=== PATIENT | male | born 1955 | race Caucasian/White ===

== ENCOUNTER → 2017-01-27 06:18 | Day surgery (SDC) | payer BC ==
--- NOTE | 2017-01-21 08:37 | HP ---
CC: Dr. Moreno * HISTORY AND PHYSICAL: DATE OF PLANNED ADMISSION AND SURGERY: 01/27/17 HISTORY OF PRESENT ILLNESS: Mr. 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 The patient has noted an increasing rash and discomfort in the glans penis and the foreskin. The condition has become bothersome and he was evaluated by Dr. Moreno. He was placed on an antifungal cream without improvement of the condition. There was no associated changes in his voiding; in particular, he did not have any decreased stream, hesitancy, or spraying of his urinary stream. Upon evaluation in the office, he was noted to have changes consistent with balanitis xerotica obliterans involving the foreskin and the glans penis, and circumcision was recommended. Past history is relevant for a right nephrectomy for obstructing stone disease in 1995. This has resulted in a right hydrocele for which he underwent surgery. He denies any voiding symptoms. He denies any history of gross hematuria. PAST MEDICAL HISTORY AND SYSTEM REVIEW: He is hypertensive, maintained on captopril 50 mg twice a day. He is on supplements and vitamins. He has a history of sleep apnea. He denies any cardiac or pulmonary diseases. ALLERGIES: He reports being ALLERGIC to SULFA drugs. PHYSICAL EXAMINATION GENERAL: He is a white male who looks older than his age. VITAL SIGNS: Blood pressure 150/74, pulse of 80. LUNGS: Normal. HEART: Normal. He has no CVA tenderness. ABDOMEN: Normal. GENITALIA: he is not circumcised. There is a blanching of the glans penis consistent with BXO. There is also thickening of the foreskin, consistent also with BXO. The urethral meatus looks normal, and there is no evidence of any meatal stenosis. RECTAL: Exam shows a non-enlarged and non-suspicious prostate. 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 PLAN: Plan is for circumcision. The patient understands that the circumcision will probably improve his condition, but does not completely cure it, and he might require to be on steroid cream treatments on and off on a chronic basis. I discussed the above plans with the patient; all his questions were answered. [id number]/[facility] #: [id number] [facility]
[~2017-01-27 06:18] MED LIST: Bacitracin OINTMENT* 1 TUBE ONE; Buffered Lidocaine 0.9% SYRIN* 5 ML/SYR SYRINGE INTRADERM ONE; Buffered Lidocaine 0.9% SYRIN* 5 ML/SYR SYRINGE ONE; Bupivacaine 0.5% SDV PF* 30 ML VIAL ONE; Dexamethasone IV* 4 MG/ML 1 ML (4 MG) ONE; DiMENhydriNATE IV* 50 MG/ML VIAL IV PUSH PRN; Famotidine IV* 10 MG/ML 2 ML (20 mg) IV ONE; Famotidine IV* 10 MG/ML 2 ML (20 mg) ONE; HYDROmorphone* 1 MG/ML 1 ML SYR IV PRN; KETAMINE HCL* 50 MG/ML 10 ML VIAL ONE; Ketorolac INJ* 30 MG/ML 1 ML VIAL ONE; Lidocaine 1% INJ* 10 MG/ML 30 ML SDV ONE; Lidocaine 2% JELLY* 6 ML JELLY TOPICAL ONE; Lidocaine 2% PF * 5 ML VIAL ONE; Midazolam* 1 MG/ML 5 ML VIAL (5 MG) ONE; Ondansetron INJ* 2 MG/ML VIAL ONE; Propofol* 10 MG/ML 20 ML BTL IV PUSH ONE; fentaNYL* 50 MCG/ML 2 ML VIAL (100 MCG VIAL) ONE; oxyCODONE/Acetamin 5/325 MG* TAB PO PRN
[2017-01-27 10:06] VITALS: BP 128/68
--- NOTE | 2017-01-28 05:38 | OP ---
CC: Tobias Moreno MD* DATE OF OPERATION: 01/27/17 - [facility] DATE OF : 59 SURGEON: Daniel Gutierres MD ANESTHESIOLOGIST: Luna Mac MD ANESTHESIA: General. PRE-OP DIAGNOSIS: Balanitis xerotica obliterans of foreskin and glans penis. POST-OP DIAGNOSIS: Balanitis xerotica obliterans of foreskin and glans penis. OPERATIVE PROCEDURE: Circumcision. INDICATION FOR PROCEDURE: Mr. Jones is a 61-year-old white male who had noted an increasing rash, pain, and thickening of the glans penis and of the foreskin. There was no associated change in his voiding. Physical exam in the office confirmed the diagnosis of balanitis xerotica obliterans with thickening and blanching of the foreskin and of the glans penis. There was no meatal stenosis. Because of the above history and findings, circumcision was advised and accepted. Pathology: The above described findings were again noted on exam. There was no phimosis noted. The foreskin was thick and moderately vascular. There were no suspicious skin lesions noted. DESCRIPTION OF PROCEDURE: With the patient in the supine position and under intravenous sedation, he was prepped and draped for circumcision. A total of 10 cc of a 50% mixture of 1% Xylocaine and 0.5% Marcaine were given for penile block. Because of agitation due to sleep apnea, the patient ended up being under general anesthesia for the procedure. A circumferential incision was carried at the skin aspect of the foreskin. The foreskin was then retracted and a circumferential incision was then carried on the mucous membrane aspect of the foreskin about 0.5 cm proximal and parallel to the king. The frenulum was fused with the skin and the frenular artery was identified and was preserved. The foreskin was then excised. The bleeders were electrocoagulated, or controlled with 4-0 Vicryl sutures. The stump of the foreskin was then approximated using interrupted sutures of 4-0 Vicryl. This achieved very good hemostasis and the final result looked very satisfactory. Antibiotic ointment was applied over the incision and a gentle dressing was applied. The patient tolerated the procedure well and left the operating room in good condition. The blood loss was negligible and the specimen was foreskin. All the counts were correct. [id number]/[facility] #: [id number] [facility]ITALMelissa
== END | disposition home or self-care (01) ==
LOC: OR 06:18
PROVIDERS: ATTEND Urology
DX: N48.0 Leukoplakia of penis (principal); I10 Essential (primary) hypertension; G47.30 Sleep apnea, unspecified
CPT/HCPCS: 88304; A9270-GY; J1100; J1885; J2001; J2250; J2405; J2704; J3010

== ENCOUNTER 2017-02-02 23:05 | Emergency (ER) | payer BC ==
[2017-02-03 01:04] VITALS: BP 111/45
--- NOTE | 2017-02-05 20:05 | ED ---
Skin Complaint - HPI Summary HPI Summary: Pt had a circumcision on 01/27. Tonight he was picking at surgical site. Expresses concern, no bleeding. Denies pain or abnormal discharge. Surgeon is Dr. Gutierres. No follow up as of yet. Sutures are absorbable. Denies pain with urination or difficulty urinating. - History of Current Complaint Chief Complaint: EDGeneral Time Seen by Provider: 02/03/17 00:42 Stated Complaint: PENIS LAC Hx Obtained From: Patient Onset/Duration: Started Hours Ago Skin Exposure Onset/Duration: Days Ago Timing: Constant Onset Severity: Mild Current Severity: Mild Pain Intensity: 0 Pain Scale Used: 0-10 Numeric Skin Location: Discrete - glans penis Related History: Trauma - Allergy/Home Medications Allergies/Adverse Reactions: Allergies Allergy/AdvReac Type Severity Reaction Status Date / Time Sulfa Antibiotics Allergy Rash Verified 01/27/17 06:21 PMH/Surg Hx/FS Hx/Imm Hx Previously Healthy: Yes Cardiovascular History: Reports: Hx Hypertension - controlled with medication Respiratory History: Reports: Hx Sleep Apnea - not confirmed History: Reports: Other Problems/Disorders - right kidney removed 1995 Sensory History: Reports: Hx Contacts or Glasses - reading Denies: Hx Hearing Aid Opthamlomology History: Reports: Hx Contacts or Glasses - reading - Surgical History Surgery Procedure, Year, and Place: right nephrectomy 1995. kidney stone 1976, 1995 Hx Anesthesia Reactions: No - Immunization History Hx Pertussis Vaccination: No Immunizations Up to Date: Unable to Obtain/Confirm Infectious Disease History: Denies: Traveled Outside the [place] in Last 30 Days - Social History Occupation: Unemployed Lives: With Family Alcohol Use: Rare Alcohol Amount: 1 drink every 2-3 months Substance Use Type: Reports: None, Excessive Caffeine Smoking Status (MU): Never Smoked Tobacco Review of Systems Constitutional: Negative ENT: Negative Cardiovascular: Negative Gastrointestinal: Negative Genitourinary: Negative Positive: no symptoms reported, see HPI Musculoskeletal: Negative Positive: Other - glans penis with absorbable sutures Neurological: Negative Psychological: Normal All Other Systems Reviewed And Are Negative: Yes Physical Exam Triage Information Reviewed: Yes Vital Signs On Initial Exam: Initial Vitals Temp Pulse Resp BP Pulse Ox 97.9 F 102 18 129/76 96 02/02/17 23:21 02/02/17 23:21 02/02/17 23:21 02/02/17 23:21 02/02/17 23:21 Vital Signs Reviewed: Yes Appearance: Positive: Well-Appearing, No Pain Distress, Well-Nourished Skin: Positive: Warm, Skin Color Reflects Adequate Perfusion Head/Face: Positive: Normal Head/Face Inspection Eyes: Positive: EOMI, AYDEN, Conjunctiva Clear Neck: Positive: Supple, Nontender, No Lymphadenopathy Respiratory/Lung Sounds: Positive: Clear to Auscultation, Breath Sounds Present Cardiovascular: Positive: Normal, RRR Male Genital Exam: Positive: normal genitalia - glans penis with intact absorbable sutures without drainage, bleeding or abnormalities. tenderness to the superior portion of the glans penis on palpation with no signs of abscess/ infection Musculoskeletal: Positive: Normal, Strength/ROM Intact Neurological: Positive: Sensory/Motor Intact, Alert, Oriented to Person Place, Time, Speech Normal Psychiatric: Positive: Normal Diagnostics - Vital Signs Vital Signs Temp Pulse Resp BP Pulse Ox 02/03/17 01:02 93 18 111/45 02/03/17 00:36 93 96 02/02/17 23:21 97.9 F 102 18 129/76 96 - Laboratory Lab Statement: Any lab studies that have been ordered have been reviewed, and results considered in the medical decision making process. Course/Dx - Course Course Of Treatment: 1 week s/p circumcision of the foreskin from glans penis with intact absorbable sutures without drainage, bleeding or abnormalities. tenderness to the superior portion of the glans penis on palpation with no signs of abscess/infection. Assured patient he did not disturn the stitches while picking at the site earlier this afternoon. Encouraged follow up with Dr. Gutierres within 1 week for an evaluation - Differential Diagnoses - Skin Complaint Differential Diagnoses: Other - suture removal, laceration, suture problem - Diagnoses Provider Diagnoses: Suture check Discharge - Discharge Plan Condition: Stable Disposition: HOME Patient Education Materials: Care For Your Absorbable Stitches (ED) Referrals: Tobias Moreno MD [Primary Care Provider] - Additional Instructions: Stitches seem to be intact and without bleeding or other trauma Call Dr. Gutierres's office tomorrow and inform them you were seen here Ask when next appt is to double check on healing of the surgery If you develop any worsening pain or you notice any bleeding around the site, call Dr. Gutierres's office, or return to the ED.
== END 2017-02-03 01:04 | disposition home or self-care (01) ==
LOC: ED 23:05
DX: Z48.01 Encounter for change or removal of surgical wound dressing (principal); I10 Essential (primary) hypertension; Z88.2 Allergy status to sulfonamides
CPT/HCPCS: 99281